=== PATIENT | female | born 1935 | race Hispanic/Latino ===

== ENCOUNTER 2017-03-24 07:29 | Emergency (ER) | payer SELFPAY ==
[2017-03-24 09:42] LABS: Basophils % (Auto) 0.5 % (0.0-1.8); Eosinophils % (Auto) 0.5 % (0.0-4.3); Mean Corpuscular HGB Conc 31 % (30-34); Mean Corpuscular Volume 76 fl (79-97); Platelet Count 197 K/mm3 (140-440); Red Blood Count 5.26 M/mm3 (3.65-5.03); Red Cell Distribution Width 15.2 % (13.2-15.2); White Blood Count 6.8 K/mm3 (4.5-11.0)
[2017-03-24 09:51] LABS: Anion Gap 15 mmol/L; Blood Urea Nitrogen 11 mg/dL (7-17); Calcium 9.2 mg/dL (8.4-10.2); Carbon Dioxide 28 mmol/L (22-30); Chloride 103.4 mmol/L (98-107); Glucose 98 mg/dL (65-100); Hematocrit 39.7 % (30.3-42.9); Hemoglobin 12.2 gm/dl (10.1-14.3); Mean Corpuscular Hemoglobin 23 pg (28-32); Potassium 3.7 mmol/L (3.6-5.0); Sodium 143 mmol/L (137-145)
[2017-03-24] MEDS ORDERED: HALDOL IM ONE (10:47)
[2017-03-24] MEDS ORDERED: ATIVAN IM ONE (10:47)
--- NOTE | 2017-03-24 10:48 | Emergency Department Report ---
ED General Adult HPI - General Chief complaint: Fall Stated complaint: FALL/AMS Time Seen by Provider: 03/24/17 10:37 Source: patient, EMS (ems notes not available at time of chart dictation), RN notes reviewed Mode of arrival: Stretcher Limitations: Other (patient demented, patient poor historian, history of Alzheimer) - History of Present Illness Initial comments: This is an 81-year-old female who was previously unknown to this provider. Patient apparently was found down on floor of her local nursing care facility, and is sent to the ER for evaluation. The patient has no complaints, and is currently walking around the emergency department in no distress. She will follow some commands but not all commands. Patient is unable to provide exacerbating or relieving factors. -: unknown Improves with: none Worsens with: none Associated Symptoms: confusion (chronic baseline confusion) - Related Data Allergies Allergy/AdvReac Type Severity Reaction Status Date / Time No Known Allergies Allergy Unverified 03/24/17 07:50 ED Review of Systems ROS: Stated complaint: FALL/AMS Other details as noted in HPI Comment: Unobtainable due to pts medical conditions ED Past Medical Hx - Past Medical History Hx Dementia: Yes Additional medical history: Alzheimer - Social History Smoking Status: Never Smoker Substance Use Type: None ED Physical Exam - General Limitations: Other (patient demented, poor historian) General appearance: alert, in no apparent distress - Head Head exam: Present: normocephalic, other (frontal ecchymosis noted) - Eye Eye exam: Present: other (left surgical pupil status post cataract surgery. Minimal pupillary response and the right pupil.). Absent: normal appearance (b/ l arcus senilis) - ENT ENT exam: Present: normal exam, normal orophraynx, mucous membranes moist, TM's normal bilaterally, normal external ear exam, other (there is no hemotympanum. There is no nasal septal hematoma.) - Neck Neck exam: Present: normal inspection, full ROM. Absent: tenderness, meningismus - Respiratory Respiratory exam: Present: normal lung sounds bilaterally. Absent: respiratory distress, wheezes, rales, rhonchi, stridor, chest wall tenderness - Cardiovascular Cardiovascular Exam: Present: regular rate, normal rhythm, normal heart sounds. Absent: bradycardia, tachycardia, irregular rhythm, systolic murmur, diastolic murmur, rubs, gallop - GI/Abdominal GI/Abdominal exam: Present: soft, normal bowel sounds. Absent: distended, tenderness, guarding, rebound, rigid, pulsatile mass - Extremities Exam Extremities exam: Present: normal inspection, normal capillary refill, other ( the pelvis is stable. There is no long bony tenderness. The compartments are soft. 2+ pulses noted in the bilateral upper and lower extremities.). Absent: calf tenderness - Back Exam Back exam: Present: normal inspection, full ROM. Absent: tenderness, CVA tenderness (R), CVA tenderness (L), muscle spasm, paraspinal tenderness, vertebral tenderness - Neurological Exam Neurological exam: Present: alert, normal gait, other (Extraocular movements intact. Tongue midline. No facial droop. Facial sensation intact to light touch in the V1, V2, V3 distribution bilaterally. 5 and 5 strength in 4 extremities.. Sensation is intact to light touch in 4 extremities.). Absent: motor sensory deficit - Psychiatric Psychiatric exam: Present: normal affect, normal mood - Skin Skin exam: Present: warm, dry, intact, normal color. Absent: rash ED Course Vital Signs 03/24/17 03/24/17 03/24/17 07:39 07:50 08:50 Temperature 97 F L Pulse Rate 78 73 Respiratory 16 16 Rate Blood Pressure 132/47 132/47 O2 Sat by Pulse 97 97 98 Oximetry 03/24/17 03/24/17 03/24/17 09:00 09:30 10:18 Temperature Pulse Rate Respiratory 16 Rate Blood Pressure 139/81 139/81 139/81 O2 Sat by Pulse 98 96 87 Oximetry 03/24/17 03/24/17 03/24/17 10:36 11:00 11:30 Temperature Pulse Rate Respiratory Rate Blood Pressure 139/81 145/96 145/96 O2 Sat by Pulse 99 98 Oximetry 03/24/17 12:00 Temperature Pulse Rate Respiratory Rate Blood Pressure 145/96 O2 Sat by Pulse 100 Oximetry - Reevaluation(s) Reevaluation #1: 03/24/17 13:02 Differential diagnosis: Intracranial injury, cervical spine injury, pneumonia, urinary tract infection, fall, contusion Assessment and plan: 81-year-old female status post fall. Uncertain what mechanisms involved. Patient initially walking around the ER, neurologic examination nonfocal, her presentation appears to be consistent with elderly patient with chronic dementia. Patient required Haldol and Ativan for her safety, she is currently awaiting CT scan of the brain and cervical spine. Laboratory studies unremarkable, x-ray of the chest, pelvis unremarkable. EKG pending. Reevaluation #2: 03/24/17 13:59 CT scan of the brain and cervical spine negative. Patient resting comfortably. No distress. Patient will be discharged at this time. Return precautions are reviewed. ED Medical Decision Making - Lab Data Result diagrams: 03/24/17 09:18 03/24/17 09:18 Vital Signs 03/24/17 03/24/17 03/24/17 07:39 07:50 08:50 Temperature 97 F L Pulse Rate 78 73 Respiratory 16 16 Rate Blood Pressure 132/47 132/47 O2 Sat by Pulse 97 97 98 Oximetry 03/24/17 03/24/17 03/24/17 09:00 09:30 10:18 Temperature Pulse Rate Respiratory 16 Rate Blood Pressure 139/81 139/81 139/81 O2 Sat by Pulse 98 96 87 Oximetry 03/24/17 03/24/17 03/24/17 10:36 11:00 11:30 Temperature Pulse Rate Respiratory Rate Blood Pressure 139/81 145/96 145/96 O2 Sat by Pulse 99 98 Oximetry 03/24/17 12:00 Temperature Pulse Rate Respiratory Rate Blood Pressure 145/96 O2 Sat by Pulse 100 Oximetry Lab Results 03/24/17 03/24/17 03/24/17 Range/Units 09:18 09:18 09:18 WBC 6.8 (4.5-11.0) K/mm3 RBC 5.26 H (3.65-5.03) M/mm3 Hgb 12.2 (10.1-14.3) gm/dl Hct 39.7 (30.3-42.9) % MCV 76 L (79-97) fl MCH 23 L (28-32) pg MCHC 31 (30-34) % RDW 15.2 (13.2-15.2) % Plt Count 197 (140-440) K/mm3 Lymph % (Auto) 26.6 (13.4-35.0) % [place] % (Auto) 13.9 H (0.0-7.3) % Eos % (Auto) 0.5 (0.0-4.3) % Baso % (Auto) 0.5 (0.0-1.8) % Lymph # 1.8 (1.2-5.4) K/mm3 [place] # 0.9 H (0.0-0.8) K/mm3 Eos # 0.0 (0.0-0.4) K/mm3 Baso # 0.0 (0.0-0.1) K/mm3 Seg Neutrophils % 58.5 (40.0-70.0) % Seg Neutrophils # 4.0 (1.8-7.7) K/mm3 Sodium 143 (137-145) mmol/L Carbon Dioxide 28 (22-30) mmol/L BUN 11 (7-17) mg/dL Creatinine 0.5 L (0.7-1.2) mg/dL Estimated GFR > 60 ml/min BUN/Creatinine Ratio 22.00 % Glucose 98 (65-100) mg/dL Calcium 9.2 (8.4-10.2) mg/dL Total Creatine Kinase 634 H (30-135) units/L Urine Color (Yellow) Urine Turbidity (Clear) Urine pH (5.0-7.0) Ur Specific [place] (1.003-1.030) Urine Protein (Negative) mg/dL Urine Glucose (UA) (Negative) mg/dL Urine Ketones (Negative) mg/dL Urine Blood (Negative) Urine Nitrite (Negative) Urine Bilirubin (Negative) Urine Urobilinogen (<2.0) mg/dL Ur Leukocyte Esterase (Negative) Urine WBC (Auto) (0.0-6.0) /HPF Urine RBC (Auto) (0.0-6.0) /HPF Urine Mucus /HPF 03/24/17 Range/Units 11:02 WBC (4.5-11.0) K/mm3 RBC (3.65-5.03) M/mm3 Hgb (10.1-14.3) gm/dl Hct (30.3-42.9) % MCV (79-97) fl MCH (28-32) pg MCHC (30-34) % RDW (13.2-15.2) % Plt Count (140-440) K/mm3 Lymph % (Auto) (13.4-35.0) % [place] % (Auto) (0.0-7.3) % Eos % (Auto) (0.0-4.3) % Baso % (Auto) (0.0-1.8) % Lymph # (1.2-5.4) K/mm3 [place] # (0.0-0.8) K/mm3 Eos # (0.0-0.4) K/mm3 Baso # (0.0-0.1) K/mm3 Seg Neutrophils % (40.0-70.0) % Seg Neutrophils # (1.8-7.7) K/mm3 Sodium (137-145) mmol/L Carbon Dioxide (22-30) mmol/L BUN (7-17) mg/dL Creatinine (0.7-1.2) mg/dL Estimated GFR ml/min BUN/Creatinine Ratio % Glucose (65-100) mg/dL Calcium (8.4-10.2) mg/dL Total Creatine Kinase (30-135) units/L Urine Color Yellow (Yellow) Urine Turbidity Clear (Clear) Urine pH 5.0 (5.0-7.0) Ur Specific [place] 1.019 (1.003-1.030) Urine Protein <15 mg/dl (Negative) mg/dL Urine Glucose (UA) Neg (Negative) mg/dL Urine Ketones Neg (Negative) mg/dL Urine Blood Neg (Negative) Urine Nitrite Neg (Negative) Urine Bilirubin Neg (Negative) Urine Urobilinogen < 2.0 (<2.0) mg/dL Ur Leukocyte Esterase Neg (Negative) Urine WBC (Auto) 1.0 (0.0-6.0) /HPF Urine RBC (Auto) 1.0 (0.0-6.0) /HPF Urine Mucus Few /HPF - EKG Data -: EKG Interpreted by Ri EKG shows normal: sinus rhythm - EKG Data 03/24/17 14:46 Sinus, 62 bpm, left axis deviation, QTC 459 ms, no arrhythmia, motion artifact, abnormal EKG, not morphologically consistent with STEMI - Radiology Data Radiology results: report reviewed, image reviewed X-ray of the chest, x-ray of the pelvis negative CT scan of the brain and cervical spine negative Critical care attestation.: If time is entered above; I have spent that time in minutes in the direct care of this critically ill patient, excluding procedure time. ED Disposition Clinical Impression: Fall Disposition: DC/TX-70 ANOTHER TYPE HLTHCARE Is pt being admited?: No Does the pt Need Aspirin: No Condition: Stable Instructions: Fall Prevention (ED) Additional Instructions: Continue current outpatient medications. Follow up with a primary care doctor within the next month. Return to the ER right away with fevers, chills, lethargy, irritability, projectile vomiting, change in mental status, inability to tolerate liquid feeds. Referrals: PRIMARY MD JANIA [Primary Care Provider] - 3-5 Days OLENA MILES MD [Staff Physician] - 3-5 Days
[2017-03-24] MEDS ORDERED: HALDOL ONE (10:51)
[2017-03-24] MEDS ORDERED: ATIVAN ONE (10:51)
[2017-03-24 11:04] VITALS: BP 145/96
[2017-03-24 11:17] LABS: Bilirubin,Urine NEG (Negative); Blood,Urine NEG (Negative); Ketones,Urine NEG (Negative); Leukocyte Esterase,Urine NEG (Negative); Mucus,Urine FEW /HPF; Nitrite,Urine NEG (Negative); Protein,Urine <15 mg/dL mg/dL (Negative); Urobilinogen,Urine < 2.0 mg/dL (<2.0)
--- NOTE | 2017-03-24 12:12 | XRay Report ---
AP PELVIS: History: Pain after fall. AP view of the pelvis shows normal pelvic contour and soft tissues. The hips are symmetric and within normal limits as are the sacroiliac joints. IMPRESSION: No acute injury identified.
--- NOTE | 2017-03-24 12:13 | XRay Report ---
Single view chest: History: Fall, PNA. Findings: Cardiomegaly. Trachea is midline. No consolidation, pneumothorax or pleural effusion. Impression: Cardiomegaly. No definite acute lung changes.
--- NOTE | 2017-03-24 13:49 | Cat Scan Report ---
CT SCAN OF THE CERVICAL SPINE: HISTORY: Neck injury after fall. TECHNIQUE: Contiguous 1.25 mm axial images of the cervical spine were obtained. Sagittal and coronal reformatted images. FINDINGS: Borderline bone mineralization. There is reversal of the normal cervical lordosis with moderate multilevel degenerative disc disease and facet arthropathy. No evidence for displaced fracture, subluxation or bone lesion. No high-grade central canal narrowing is appreciated. Multilevel neural foraminal narrowing is suspected. The paraspinal soft tissues are within normal limits. IMPRESSION: Cervical spondylosis. Reversal of the normal cervical lordosis. No acute injury is appreciated on CT.
--- NOTE | 2017-03-24 13:49 | Cat Scan Report ---
CT HEAD WITHOUT CONTRAST: HISTORY: Altered mental status, fall. TECHNIQUE: Sequential CT images without contrast. FINDINGS: Images obtained show bilateral prominence of the sulci and ventricles. There are no abnormal intra- or extra-axial blood or fluid collections. There are no focal masses or evidence of mass effect. The hoskins white matter differentiation appears within normal limits. Regions of periventricular decreased attenuation are consistent with microangiopathic ischemic disease. The posterior fossa structures including the fourth ventricle, cerebellum, and brainstem appear normal. IMPRESSION: Evidence of atrophy and microangiopathic ischemic disease. No acute intracranial process noted.
== END 2017-03-24 18:25 | disposition other institution (70) ==
LOC: ED 07:29
DX: R41.0 Disorientation, unspecified (principal); F03.90 Unspecified dementia, unspecified severity, without behavioral disturbance, psychotic disturbance, mood disturbance, and anxiety
CPT/HCPCS: 36415; 70450; 71010; 72125; 72170; 80048; 81001; 82550; 82962; 85025; 93005; 93010; 96372; 99285; J1630; J2060

== ENCOUNTER 2018-07-07 12:52 | Emergency (ER) | payer SELFPAY ==
[2018-07-07 14:15] LABS: Basophils % (Auto) 0.7 % (0.0-1.8); Eosinophils # (Auto) 0.2 K/mm3 (0.0-0.4); Eosinophils % (Auto) 3.2 % (0.0-4.3); Hematocrit 38.7 % (30.3-42.9); Hemoglobin 12.1 gm/dl (10.1-14.3); Lymphocytes # (Auto) 1.8 K/mm3 (1.2-5.4); Mean Corpuscular HGB Conc 31 % (30-34); Mean Corpuscular Volume 77 fl (79-97); Monocytes # (Auto) 0.5 K/mm3 (0.0-0.8); Monocytes % (Auto) 8.5 % (0.0-7.3); Platelet Count 122 K/mm3 (140-440); Red Blood Count 5.04 M/mm3 (3.65-5.03); Red Cell Distribution Width 14.7 % (13.2-15.2)
[2018-07-07 14:28] LABS: Partial Thromboplastin Time 21.1 Sec. (24.2-36.6)
--- NOTE | 2018-07-07 14:29 | Emergency Department Report ---
ED General Adult HPI - General Chief complaint: Altered Mental Status Stated complaint: AMS Source: EMS Mode of arrival: Stretcher Limitations: Altered Mental Status, Physical Limitation - History of Present Illness Initial comments: Atrial female who had a choking episode and vomited while eating lunch today. She is transported to this facility with a question of a change in her mental status. There is said that he did not get any direct report beyond the above. The patient is essentially nonverbal and is not providing any historical information. She will follow simple commands. - Related Data Allergies Allergy/AdvReac Type Severity Reaction Status Date / Time No Known Allergies Allergy Unverified 03/24/17 07:50 ED Review of Systems ROS: Stated complaint: AMS Other details as noted in HPI Comment: Unobtainable due to pts medical conditions ED Past Medical Hx - Past Medical History Previous Medical History?: Yes Hx Hypertension: Yes Hx Dementia: Yes Additional medical history: Alzheimer - Social History Smoking Status: Unknown if ever smoked Substance Use Type: None ED Physical Exam - General Limitations: Altered Mental Status, Physical Limitation General appearance: in no apparent distress, lethargic (somewhat) - Head Head exam: Present: atraumatic, normocephalic - Eye Eye exam: Present: normal appearance. Absent: scleral icterus - ENT ENT exam: Present: mucous membranes moist - Neck Neck exam: Present: normal inspection. Absent: tenderness, meningismus - Respiratory Respiratory exam: Present: normal lung sounds bilaterally. Absent: respiratory distress - Cardiovascular Cardiovascular Exam: Present: regular rate, normal rhythm. Absent: systolic murmur, diastolic murmur, rubs, gallop - GI/Abdominal GI/Abdominal exam: Present: soft, normal bowel sounds. Absent: distended, tenderness, guarding, rebound, rigid - Extremities Exam Extremities exam: Present: normal inspection - Back Exam Back exam: Present: normal inspection - Neurological Exam Neurological exam: Present: alert, altered, CN II-XII intact (as testable). Absent: motor sensory deficit (not apparent) - Psychiatric Psychiatric exam: Present: normal mood, flat affect - Skin Skin exam: Present: warm, dry, intact, normal color. Absent: rash ED Course Vital Signs 07/07/18 13:17 Temperature 97.2 F L Pulse Rate 96 H Respiratory 17 Rate Blood Pressure 128/80 O2 Sat by Pulse 95 Oximetry - Reevaluation(s) Reevaluation #1: Patient is poorly responsive and asking to eat. CT of the head and chest was okay. I do not think she would benefit from hospitalization at this time. She will be returned to the intermediate. 07/07/18 17:11 ED Medical Decision Making - Lab Data Result diagrams: 07/07/18 Unknown 07/07/18 Unknown Laboratory Results - last 24 hr 07/07/18 07/07/18 07/07/18 14:24 Unknown Unknown WBC 6.1 RBC 5.04 H Hgb 12.1 Hct 38.7 MCV 77 L MCH 24 L MCHC 31 RDW 14.7 Plt Count 122 L Lymph % (Auto) 29.0 [place] % (Auto) 8.5 H Eos % (Auto) 3.2 Baso % (Auto) 0.7 Lymph # 1.8 Crisp # 0.5 Eos # 0.2 Baso # 0.0 Seg Neutrophils % 58.6 Seg Neutrophils # 3.6 PT INR APTT Sodium 142 Potassium 4.0 Chloride 103.7 Carbon Dioxide 28 Anion Gap 14 BUN 10 Creatinine 0.7 Estimated GFR > 60 BUN/Creatinine Ratio 14 Glucose 114 H Calcium 9.3 Magnesium 1.90 Total Bilirubin 0.20 AST 18 ALT 14 Alkaline Phosphatase 67 Ammonia 60.0 NT-Pro-B Natriuret Pep 49.89 Total Protein 6.6 Albumin 3.7 L Albumin/Globulin Ratio 1.3 07/07/18 Unknown WBC RBC Hgb Hct MCV MCH MCHC RDW Plt Count Lymph % (Auto) [place] % (Auto) Eos % (Auto) Baso % (Auto) Lymph # Crisp # Eos # Baso # Seg Neutrophils % Seg Neutrophils # PT 14.2 INR 1.06 APTT 21.1 L Sodium Potassium Chloride Carbon Dioxide Anion Gap BUN Creatinine Estimated GFR BUN/Creatinine Ratio Glucose Calcium Magnesium Total Bilirubin AST ALT Alkaline Phosphatase Ammonia NT-Pro-B Natriuret Pep Total Protein Albumin Albumin/Globulin Ratio - EKG Data EKG shows normal: sinus rhythm, axis, intervals, QRS complexes, ST-T waves Rate: tachycardia - EKG Data Interpretation: nonspecific ST-T wave letty - Radiology Data Radiology results: report reviewed Chest x-ray and CT of the head no acute process. Critical care attestation.: If time is entered above; I have spent that time in minutes in the direct care of this critically ill patient, excluding procedure time. ED Disposition Clinical Impression: Awareness alteration, transient Choking Qualifiers: Encounter type: initial encounter Qualified Code(s): T17.308A - Unspecified foreign body in larynx causing other injury, initial encounter Disposition: TO HOME OR SELFCARE Is pt being admited?: No Does the pt Need Aspirin: No Condition: Stable Additional Instructions: Return to the emergency department if any further problem. Otherwise follow-up with primary care provider. Referrals: PRIMARY CARE, [Primary Care Provider] - 3-5 Days Time of Disposition: 17:53
[2018-07-07 14:35] LABS: Alanine Aminotransferase 14 units/L (7-56); Albumin 3.7 g/dL (3.9-5); BUN/Creatinine Ratio 14; Blood Urea Nitrogen 10 mg/dL (7-17); Calcium 9.3 mg/dL (8.4-10.2); Hemolysis Index 10
[2018-07-07 14:43] LABS: INR 1.06 (0.87-1.13)
--- NOTE | 2018-07-07 14:52 | XRay Report ---
AP CHEST: HISTORY: Cough AP view of the chest demonstrates a normal mediastinal and cardiac contour with clear lungs and normal bony and soft tissue structures. IMPRESSION: Unremarkable AP chest.
--- NOTE | 2018-07-07 15:30 | Cat Scan Report ---
CT HEAD WITHOUT CONTRAST: HISTORY: Altered mental status. TECHNIQUE: Sequential CT images without contrast. FINDINGS: Images obtained show bilateral prominence of the sulci and ventricles. There are no abnormal intra- or extra-axial blood or fluid collections. There are no focal masses or evidence of mass effect. The hoskins white matter differentiation appears within normal limits. Regions of periventricular decreased attenuation are consistent with microangiopathic ischemic disease. The posterior fossa structures including the fourth ventricle, cerebellum, and brainstem appear normal. IMPRESSION: Evidence of atrophy and microangiopathic ischemic disease. No acute intracranial process noted. No change since 03/24/17.
[2018-07-07 19:21] VITALS: BP 128/41
== END 2018-07-07 19:21 | disposition home or self-care (01) ==
LOC: ED 12:52
DX: T17.308A Unspecified foreign body in larynx causing other injury, initial encounter (principal); R40.4 Transient alteration of awareness; I10 Essential (primary) hypertension; X58.XXXA Exposure to other specified factors, initial encounter; Y93.89 Activity, other specified; Y92.89 Other specified places as the place of occurrence of the external cause; Y99.8 Other external cause status
CPT/HCPCS: 36415; 70450; 71045; 80053; 82140; 83735; 83880; 85025; 85610; 85730; 93005; 93010; 99284

== ENCOUNTER 2021-05-24 10:54 | Emergency (ER) | payer MEDICARE ==
--- NOTE | 2021-05-24 12:35 | Cat Scan Report ---
CT HEAD WITHOUT CONTRAST INDICATION / CLINICAL INFORMATION: fall chi, loc. TECHNIQUE: All CT scans at this location are performed using CT dose reduction for ALARA by means of automated e xposure control. COMPARISON: Head CT 03/24/2017 FINDINGS: HEMORRHAGE: No evidence of intracranial hemorrhage or extra-axial fluid collection. EXTRA-AXIAL SPACES: Cortical sulci and sylvian fissures are enlarged reflecting a degree of parenchym al volume loss which is within normal limits for the patient's age of 85 years. Basilar cisterns have an unremarkable appearance. VENTRICULAR SYSTEM: The third and lateral ventricles are enlarged reflecting presence of age related parenchymal volume loss. CEREBRAL PARENCHYMA: Periventricular and deep white matter lucency is observed. This is probably seco ndary to microvascular ischemic change. There is no indication of recent infarction. No areas of ence phalomalacia are identified. MIDLINE SHIFT OR HERNIATION: There is no mass effect. CEREBELLUM / BRAINSTEM: Brainstem has an unremarkable appearance. Age related cerebellar atrophy is n oted. MIDLINE STRUCTURES:Pituitary gland has an unremarkable appearance. No abnormalities are seen in the p ineal region. INTRACRANIAL VESSELS: Mildly calcified atherosclerotic plaque is present along the course of the cave rnous segments of both internal carotid arteries. ORBITS: Status post left cataract surgery. No addit ional abnormality. SOFT TISSUES of HEAD: No significant abnormality. CALVARIUM: Evaluation of bone windows reveals no abnormalities. PARANASAL SINUSES / MASTOID AIR CELLS: Paranasal sinuses are free from inflammatory mucosal disease. The frontal sinuses did not develop in this individual. Mastoid air cells are normally pneumatized. ADDITIONAL FINDINGS: None. IMPRESSION: 1. Age-appropriate involutional changes of parenchymal volume loss and mild microvascular ischemia. 2. No acute intracranial abnormality. No interval change. Signer Name: Navin White MD Signed: 05/24/2021 12:30 PM Workstation Name: [id number]
--- NOTE | 2021-05-24 13:42 | Emergency Department Report ---
ED Fall HPI - General Chief Complaint: Fall Stated Complaint: FALL Time Seen by Provider: 05/24/21 11:37 Source: patient Mode of arrival: Stretcher - History of Present Illness Initial Comments: Patient 85-year-old F Nigerien female with a past medical history of dementia who suffered a fall out of bed. Patient has an abrasion to the left scientology. Patient cannot remember the details of the fall. Patient's dementia is advanced and the patient is unable to give any meaningful history. She states she feels fine. Patient did not actually know that she was in the hospital during our interaction. States she has no pain nausea vomiting. - Related Data Allergies Allergy/AdvReac Type Severity Reaction Status Date / Time No Known Allergies Allergy Unverified 05/24/21 11:16 ED Review of Systems ROS: Stated complaint: FALL Other details as noted in HPI Comment: All other systems reviewed and negative ED Past Medical Hx - Past Medical History Hx Hypertension: Yes Hx Dementia: Yes Additional medical history: Alzheimer - Social History Smoking Status: Unknown if ever smoked Substance Use Type: None ED Physical Exam - General Limitations: Other General appearance: alert, in no apparent distress - Head Head exam: Present: normocephalic, other (Small abrasion to the left scientology) - Eye Eye exam: Present: normal appearance, PERRL, EOMI (ELaura Samuels is a) - ENT ENT exam: Present: mucous membranes moist - Neck Neck exam: Present: normal inspection, full ROM. Absent: tenderness - Respiratory Respiratory exam: Present: normal lung sounds bilaterally. Absent: respiratory distress, wheezes, rales, rhonchi - Cardiovascular Cardiovascular Exam: Present: regular rate, normal rhythm, normal heart sounds. Absent: systolic murmur, diastolic murmur, rubs, gallop - GI/Abdominal GI/Abdominal exam: Present: soft, normal bowel sounds. Absent: distended, tenderness, guarding, rebound - Extremities Exam Extremities exam: Present: normal inspection - Back Exam Back exam: Present: normal inspection - Neurological Exam Neurological exam: Present: alert, oriented X3 - Psychiatric Psychiatric exam: Present: normal affect, normal mood - Skin Skin exam: Present: warm, dry, intact, normal color. Absent: rash ED Course Vital Signs 05/24/21 05/24/21 11:12 12:21 Temperature 98.0 F 97.8 F Pulse Rate 85 58 L Respiratory 14 18 Rate Blood Pressure 138/76 151/61 [Left] O2 Sat by Pulse 98 99 Oximetry ED Medical Decision Making - Radiology Data [facility] [address] [place] [address] Cat Scan Report Signed Patient: DMITRI MART MR#: [id number] : 1935 Acct:[id number] Age/Sex: 85 / F ADM Date: 05/24/21 Loc: ED Attending Dr: Ordering Physician: SHIRA MCKEON MD Date of Service: 05/24/21 Procedure(s): CT head/brain wo con Accession Number(s): [id number] cc: SHIRA MCKEON MD CT HEAD WITHOUT CONTRAST INDICATION / CLINICAL INFORMATION: fall chi, loc. TECHNIQUE: All CT scans at this location are performed using CT dose reduction for ALARA by means of automated exposure control. COMPARISON: Head CT 03/24/2017 FINDINGS: HEMORRHAGE: No evidence of intracranial hemorrhage or extra-axial fluid jeanie ection. EXTRA-AXIAL SPACES: Cortical sulci and sylvian fissures are enlarged reflecting a degree of parenchymal volume loss which is within normal limits for the patient's age of 85 years. Basilar cisterns have an unremarkable appearance. VENTRICULAR SYSTEM: The third and lateral ventricles are enlarged reflecting presence of age related parenchymal volume loss. CEREBRAL PARENCHYMA: Periventricular and deep white matter lucency is observed. This is probably secondary to microvascular ischemic change. There is no indication of recent infarction. No areas of encephalomalacia are identified. MIDLINE SHIFT OR HERNIATION: There is no mass effect. CEREBELLUM / BRAINSTEM: Brainstem has an unremarkable appearance. Age related cerebellar atrophy is noted. MIDLINE STRUCTURES:Pituitary gland has an unremarkable appearance. No abnormalities are seen in the pineal region. INTRACRANIAL VESSELS: Mildly calcified atherosclerotic plaque is present along the course of the cavernous segments of both internal carotid arteries. ORBITS: Status post left cataract surgery. No additional abnormality. SOFT TISSUES of HEAD: No significant abnormality. CALVARIUM: Evaluation of bone windows reveals no abnormalities. PARANASAL SINUSES / MASTOID AIR CELLS: Paranasal sinuses are free from inflammatory mucosal disease. The frontal sinuses did not develop in this individual. Mastoid air cells are normally pneumatized. ADDITIONAL FINDINGS: None. IMPRESSION: 1. Age-appropriate involutional changes of parenchymal volume loss and mild microvascular ischemia. 2. No acute intracranial abnormality. No interval change. Signer Name: Navin White MD Signed: 05/24/2021 12:30 PM Workstation Name: [id number] - Medical Decision Making Because the patient is a poor historian, 85 and it is unknown whether the patient lost consciousness CT head was performed. CT head negative. Patient stable for discharge Critical care attestation.: If time is entered above; I have spent that time in minutes in the direct care of this critically ill patient, excluding procedure time. ED Disposition Clinical Impression: Closed head injury, Abrasion Disposition: 01 HOME / SELF CARE / HOMELESS Is pt being admited?: No Does the pt Need Aspirin: No Condition: Stable Instructions: Head Injury, Adult, Cour-cl-Vuhr Referrals: BUDDY MARY [Primary Care Provider] - 3-5 Days Time of Disposition: 13:41
[2021-05-24 16:27] VITALS: BP 110/62
== END 2021-05-24 16:25 | disposition home or self-care (01) ==
LOC: ED 10:54
DX: S00.81XA Abrasion of other part of head, initial encounter (principal); I10 Essential (primary) hypertension; W06.XXXA Fall from bed, initial encounter; Y93.89 Activity, other specified; Y92.89 Other specified places as the place of occurrence of the external cause; Y99.8 Other external cause status
CPT/HCPCS: 70450; 99284

== ENCOUNTER 2021-11-08 18:47 | Emergency (ER) | payer MEDICARE ==
[2021-11-08] MEDS ORDERED: SODIUM CHLORIDE 0.9% 1000 ML 1,000 ML IV ONE (21:04)
--- NOTE | 2021-11-08 21:09 | Emergency Department Report ---
ED Altered Mental Status HPI - General Chief Complaint: Altered Mental Status Stated Complaint: ALTERED MENTAL STATUS Time Seen by Provider: 11/08/21 20:44 Source: EMS, RN notes reviewed Mode of arrival: Stretcher Limitations: Altered Mental Status - History of Present Illness Initial Comments: 86 yo F brought in by EMS with AMS that was noticed today when the patient urinated on herself. When asked patient denies been confused. She also denies any dysuria or urinary frequency. No other modifying or associated factors reported. - Related Data Previous Rx's Medication Instructions Recorded Last Taken Type cephALEXin [Keflex] 500 mg PO Q12HR #14 cap 11/09/21 Unknown Rx Allergies Allergy/AdvReac Type Severity Reaction Status Date / Time No Known Allergies Allergy Verified 11/09/21 02:26 ED Review of Systems ROS: Stated complaint: ALTERED MENTAL STATUS Other details as noted in HPI Comment: All other systems reviewed and negative Neurological: confusion, other (AMS) ED Past Medical Hx - Past Medical History Previous Medical History?: Yes Hx Hypertension: Yes Hx Dementia: Yes Additional medical history: Alzheimer - Surgical History Past Surgical History?: No - Social History Smoking Status: Unknown if ever smoked Substance Use Type: None - Medications Home Medications: Home Medications Medication Instructions Recorded Confirmed Last Taken Type cephALEXin [Keflex] 500 mg PO Q12HR #14 cap 11/09/21 Unknown Rx ED Physical Exam - General Limitations: Altered Mental Status General appearance: alert, in no apparent distress - Head Head exam: Present: atraumatic, normal inspection - Eye Eye exam: Present: normal appearance Pupils: Present: normal accommodation - ENT ENT exam: Present: normal exam, normal orophraynx, mucous membranes dry - Neck Neck exam: Present: normal inspection, full ROM. Absent: tenderness - Respiratory Respiratory exam: Present: normal lung sounds bilaterally. Absent: respiratory distress, accessory muscle use - Cardiovascular Cardiovascular Exam: Present: regular rate, normal rhythm, normal heart sounds - GI/Abdominal GI/Abdominal exam: Present: soft, normal bowel sounds. Absent: distended, tenderness - Extremities Exam Extremities exam: Present: normal inspection, normal capillary refill - Back Exam Back exam: Present: tenderness - Neurological Exam Neurological exam: Present: alert - Psychiatric Psychiatric exam: Present: normal affect, normal mood - Skin Skin exam: Present: warm, normal color ED Course Vital Signs 11/08/21 11/09/21 11/09/21 20:20 01:00 03:00 Temperature 98.4 F 98.6 F Pulse Rate 78 78 Respiratory 16 18 Rate Blood Pressure 157/76 138/78 [Right] O2 Sat by Pulse 99 100 100 Oximetry 11/09/21 11/09/21 04:00 08:13 Temperature 98.2 F Pulse Rate 78 78 Respiratory 18 16 Rate Blood Pressure 138/76 134/69 [Right] O2 Sat by Pulse 100 97 Oximetry - Reevaluation(s) Reevaluation #1: 11/08/21 21:09 here with concern for AMS --differential diagnosis could include not limited to urinary tract infection, or other infectious process, electrolyte abnormality including hypo or hypernatremia, hypo or hyperkalemia--we will go ahead in the meantime while waiting for the above labs and order IV fluid NS x1 L bolus. Reevaluation #2: 11/08/21 23:57 Nursing unable to collect urine for UA because patient was struggling with them. At this patient they want to try and encourage patient to urinate on the bed vega-- Pt signed out to Dr Guajardo who will follow up on the UA to see if this patient needs antibiotics for likely UTi that can explain her confusion noticed by the NH. - Lab Data Result diagrams: 11/08/21 21:22 11/08/21 21: Lab Results 11/08/21 11/08/21 11/08/21 Range/Units 21:22 21:22 21:22 WBC 5.8 (4.5-11.0) K/mm3 RBC 5.09 H (3.65-5.03) M/mm3 Hgb 12.1 (10.1-14.3) gm/dl Hct 39.6 (30.3-42.9) % MCV 78 L (79-97) fl MCH 24 L (28-32) pg MCHC 31 (30-34) % RDW 14.9 (13.2-15.2) % Plt Count 169 (140-440) K/mm3 Lymph % (Auto) 20.1 (13.4-35.0) % [place] % (Auto) 9.1 H (0.0-7.3) % Eos % (Auto) 0.9 (0.0-4.3) % Baso % (Auto) 0.3 (0.0-1.8) % Lymph # (Auto) 1.2 (1.2-5.4) K/mm3 [place] # (Auto) 0.5 (0.0-0.8) K/mm3 Eos # (Auto) 0.1 (0.0-0.4) K/mm3 Baso # (Auto) 0.0 (0.0-0.1) K/mm3 Seg Neutrophils % 69.6 (40.0-70.0) % Seg Neutrophils # 4.1 (1.8-7.7) K/mm3 Sodium 141 (137-145) mmol/L Potassium 4.0 (3.6-5.0) mmol/L Chloride 105.9 (98-107) mmol/L Carbon Dioxide 23 (22-30) mmol/L Anion Gap 16 mmol/L BUN 15 (7-17) mg/dL Creatinine 1.0 (0.6-1.2) mg/dL Estimated GFR 53 ml/min BUN/Creatinine Ratio 15 % Glucose 116 H (65-100) mg/dL Calcium 10.1 (8.4-10.2) mg/dL Total Bilirubin 0.20 (0.1-1.2) mg/dL AST 17 (5-40) units/L ALT 11 (7-56) units/L Alkaline Phosphatase 83 (35-129) units/L Total Protein 6.3 (6.3-8.2) g/dL Albumin 4.0 (3.9-5) g/dL Albumin/Globulin Ratio 1.7 % TSH 2.440 (0.270-4.200) mlU/mL Urine Color (Yellow) Urine Turbidity (Clear) Urine pH (5.0-7.0) Ur Specific [place] (1.003-1.030) Urine Protein (Negative) mg/dL Urine Glucose (UA) (Negative) mg/dL Urine Ketones (Negative) mg/dL Urine Blood (Negative) Urine Nitrite (Negative) Urine Bilirubin (Negative) Urine Urobilinogen (<2.0) mg/dL Ur Leukocyte Esterase (Negative) Urine WBC (Auto) (0.0-6.0) /HPF Urine RBC (Auto) (0.0-6.0) /HPF U Epithel Cells (Auto) (0-13.0) /HPF 11/08/21 Range/Units Unknown WBC (4.5-11.0) K/mm3 RBC (3.65-5.03) M/mm3 Hgb (10.1-14.3) gm/dl Hct (30.3-42.9) % MCV (79-97) fl MCH (28-32) pg MCHC (30-34) % RDW (13.2-15.2) % Plt Count (140-440) K/mm3 Lymph % (Auto) (13.4-35.0) % [place] % (Auto) (0.0-7.3) % Eos % (Auto) (0.0-4.3) % Baso % (Auto) (0.0-1.8) % Lymph # (Auto) (1.2-5.4) K/mm3 [place] # (Auto) (0.0-0.8) K/mm3 Eos # (Auto) (0.0-0.4) K/mm3 Baso # (Auto) (0.0-0.1) K/mm3 Seg Neutrophils % (40.0-70.0) % Seg Neutrophils # (1.8-7.7) K/mm3 Sodium (137-145) mmol/L Potassium (3.6-5.0) mmol/L Chloride (98-107) mmol/L Carbon Dioxide (22-30) mmol/L Anion Gap mmol/L BUN (7-17) mg/dL Creatinine (0.6-1.2) mg/dL Estimated GFR ml/min BUN/Creatinine Ratio % Glucose (65-100) mg/dL Calcium (8.4-10.2) mg/dL Total Bilirubin (0.1-1.2) mg/dL AST (5-40) units/L ALT (7-56) units/L Alkaline Phosphatase (35-129) units/L Total Protein (6.3-8.2) g/dL Albumin (3.9-5) g/dL Albumin/Globulin Ratio % TSH (0.270-4.200) mlU/mL Urine Color Yellow (Yellow) Urine Turbidity Clear (Clear) Urine pH 5.0 (5.0-7.0) Ur Specific [place] 1.015 (1.003-1.030) Urine Protein <15 mg/dl (Negative) mg/dL Urine Glucose (UA) Neg (Negative) mg/dL Urine Ketones Neg (Negative) mg/dL Urine Blood Sm (Negative) Urine Nitrite Neg (Negative) Urine Bilirubin Neg (Negative) Urine Urobilinogen < 2.0 (<2.0) mg/dL Ur Leukocyte Esterase Mod (Negative) Urine WBC (Auto) 2.0 (0.0-6.0) /HPF Urine RBC (Auto) < 1.0 (0.0-6.0) /HPF U Epithel Cells (Auto) 3.0 (0-13.0) /HPF Critical care attestation.: If time is entered above; I have spent that time in minutes in the direct care of this critically ill patient, excluding procedure time. ED Disposition Clinical Impression: AMS (altered mental status) Qualifiers: Altered mental status type: unspecified Qualified Code(s): R41.82 - Altered mental status, unspecified UTI (urinary tract infection) Qualifiers: Urinary tract infection type: site unspecified Hematuria presence: with hematuria Qualified Code(s): N39.0 - Urinary tract infection, site not specified; R31.9 - Hematuria, unspecified Disposition: 01 HOME / SELF CARE / HOMELESS Is pt being admited?: No Does the pt Need Aspirin: No Condition: Stable Instructions: Urinary Tract Infection, Adult Prescriptions: cephALEXin [Keflex] 500 mg PO Q12HR #14 cap Referrals: JERRY SELF MD [Primary Care Provider] - 3-5 Days Time of Disposition: 23:59 (Pt signed out to Dr Guajardo)
[2021-11-08 21:41] LABS: Basophils % (Auto) 0.3 % (0.0-1.8); Eosinophils # (Auto) 0.1 K/mm3 (0.0-0.4); Eosinophils % (Auto) 0.9 % (0.0-4.3); Lymphocytes # (Auto) 1.2 K/mm3 (1.2-5.4); Lymphocytes % (Auto) 20.1 % (13.4-35.0); Mean Corpuscular HGB Conc 31 % (30-34); Mean Corpuscular Volume 78 fl (79-97); Monocytes # (Auto) 0.5 K/mm3 (0.0-0.8); Monocytes % (Auto) 9.1 % (0.0-7.3); Platelet Count 169 K/mm3 (140-440); Red Blood Count 5.09 M/mm3 (3.65-5.03); Red Cell Distribution Width 14.9 % (13.2-15.2)
[2021-11-08 21:43] LABS: Hematocrit 39.6 % (30.3-42.9); Hemoglobin 12.1 gm/dl (10.1-14.3)
[2021-11-08 22:09] LABS: Calcium 10.1 mg/dL (8.4-10.2)
[2021-11-09] MEDS ORDERED: SODIUM CHLORIDE 0.9% 1000 ML 1,000 ML ONE (01:08)
[2021-11-09 02:56] LABS: Bilirubin,Urine NEG (Negative); Blood,Urine SM (Negative); Color,Urine Yellow (Yellow); Protein,Urine <15 mg/dL mg/dL (Negative); RBC,Urine < 1.0 /HPF (0.0-6.0); Urobilinogen,Urine < 2.0 mg/dL (<2.0)
[2021-11-09 08:35] VITALS: BP 134/69
== END 2021-11-09 09:03 | disposition home or self-care (01) ==
LOC: ED 18:47
DX: R41.82 Altered mental status, unspecified (principal); N39.0 Urinary tract infection, site not specified; I10 Essential (primary) hypertension; F03.90 Unspecified dementia, unspecified severity, without behavioral disturbance, psychotic disturbance, mood disturbance, and anxiety
CPT/HCPCS: 36415; 80053; 81001; 84443; 85025; 96360; 96361; 99284; J7030

== ENCOUNTER 2021-11-12 09:18 | Emergency (ER) | payer MEDICARE ==
[2021-11-12] MEDS ORDERED: HALOPERIDOL LACTATE 5 MG/1 ML INJ IM ONE (10:42)
--- NOTE | 2021-11-12 11:07 | Emergency Department Report ---
HPI - General Chief Complaint: Extremity Injury, Lower Time Seen by Provider: 11/12/21 10:41 - HPI HPI: Room 5 The patient is an 86-year-old female present with a chief complaint left hip pain after fall. Patient is resident in a snf and reportedly has been unable to weight-bear and complains of left lower extremity pain after fall. Patient has a history of dementia and initially denies this. Patient initially denies having any complaints however during exam patient is unable to raise her left foot off of the stretcher and she complains of pain in the left hip preventing her from doing so. ED Past Medical Hx - Past Medical History Hx Hypertension: Yes Hx Dementia: Yes Additional medical history: Alzheimer - Family History Family history: no significant - Social History Smoking Status: Unknown if ever smoked Substance Use Type: None - Medications Home Medications: Home Medications Medication Instructions Recorded Confirmed Last Taken Type cephALEXin [Keflex] 500 mg PO Q12HR #14 cap 11/09/21 Unknown Rx ED Review of Systems ROS: Stated complaint: FALL Other details as noted in HPI Comment: Unobtainable due to pts medical conditions (Dementia) Physical Exam - Physical Exam Vital Signs: Vital Signs 11/12/21 09:21 Temperature 98.5 F Pulse Rate 80 Respiratory 16 Rate Blood Pressure 140/72 [Left] O2 Sat by Pulse 97 Oximetry Physical Exam: GENERAL: The patient is well-developed well-nourished female lying on stretcher not appearing to be in acute distress. [] HEENT: Normocephalic. Atraumatic. Extraocular motions are intact. Patient has moist mucous membranes. NECK: Supple. Trachea midline CHEST/LUNGS: Clear to auscultation. There is no respiratory distress noted. HEART/CARDIOVASCULAR: Regular. There is no tachycardia. There is no gallop rub or murmur. 2+ left DP ABDOMEN: Abdomen is soft, nontender. Patient has normal bowel sounds. There is no abdominal distention. SKIN: There is no rash. There is no edema. There is no diaphoresis. NEURO: The patient is awake and alert. Patient has dementia. The patient is intermittently cooperative. The patient has no focal neurologic deficits. The patient has normal speech. Patient is able to raise right foot off of stretcher and hold in the air without difficulty. Patient is unable to raise left foot from the stretcher. Patient is able to bend left knee and left hip but unable to raise left foot off of stretcher.. GCS 15 MUSCULOSKELETAL: There is left hip pain when the patient attempts to raise her left foot off of the stretcher ED Course Vital Signs 11/12/21 09:21 Temperature 98.5 F Pulse Rate 80 Respiratory 16 Rate Blood Pressure 140/72 [Left] O2 Sat by Pulse 97 Oximetry - Consultations Consultation #1: 11/12/21 14:18 [facility] transfer line called 11/12/21 14:[address] [facility] physician Dr. Stephanie Trotter-we will accept patient in transfer ED Medical Decision Making - Radiology Data Radiology results: report reviewed (Left hip x-ray, left tib-fib x-ray, left ankle x-ray), image reviewed (Left hip x-ray, left tib-fib x-ray, left ankle x- ray) interpreted by me: Left hip m-kis-sipinypg pubic rami fracture. There is no fracture appreciated of the femur Left tib-fib x-ray-no acute fracture Left ankle x-ray-no acute fracture [address] [address] XRay Report Signed Patient: DMITRI MART V MR#: [id number] 45 : 1935 Acct:[id number] Age/Sex: 86 / F ADM Date: 11/12/21 Loc: ED Attending Dr: Ordering Physician: FRITZ RUVLACABA MD Date of Service: 11/12/21 Procedure(s): XR ankle 3+V LT Accession Number(s): [id number] cc: FRITZ RUVALCABA MD Fluoro Time In Minutes: Left ankle, 3 views HISTORY: Unable to bear weight after fall. Abnormality seen on foreleg radiographs. COMPARISON: Same-day left foreleg radiographs FINDINGS: No acute fracture or malalignment. Finding on tibia-fibula radiograph is most consistent with artifact. 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 Ankle mortise is symmetric. No focal soft tissue abnormality. IMPRESSION: No acute fracture of the left ankle. Signer Name: Adriel Finney MD Signed: 11/12 1:40 PM Workstation Name: [employer] Transcribed By: NANCY Dictated By: ADRIEL FINNEY MD Electronically Authenticated By: ADRIEL FINNEY MD Signed Date/Time: 11/12/21 1340 DD/ 1337 TD/TT: [address] [address] XRay Report Signed Patient: DMITRI MART V MR#: [id number] 45 : 1935 Acct:[id number] Age/Sex: 86 / F ADM Date: 11/12/21 Loc: ED Attending Dr: Ordering Physician: FRITZ RUVALCABA MD Date of Service: 11/12/21 Procedure(s): XR tibia fibula 2V LT Accession Number(s): [id number] cc: FRITZ RUVALCABA MD Fluoro Time In Minutes: LEFT TIBIA-FIBULA 2 VIEW(S) INDICATION / CLINICAL INFORMATION: Unable to weight-bear after fall COMPARISON: None available. FINDINGS: BONES / JOINT(S): No definite fracture is seen. No subluxation is seen. There is degenerative change in the knee joint. There is subtle lucency along the medial malleolus on one view. This is likely artifact overlapping soft tissue. SOFT TISSUES: No significant abnormality. ADDITIONAL FINDINGS: None. IMPRESSION: 1. No definite fracture is seen. There is a subtle lucency projecting at the level of the medial malleolus on one view. I suspect that this is artifactual. If ankle injury is a clinical concern, dedicated ankle radiographs are recommended to better evaluate. Signer Name: Abundio Stevenson MD Signed: 11/12/2021 11:50 AM Workstation Name: [id number] Transcribed By: SS Dictated By: Abundio Stevenson MD Electronically Authenticated By: Abundio Stevenson MD Signed Date/Time: 11/12/21 1150 DD/ 1148 TD/TT: [address] [address] XRay Report Signed Patient: DMITRI MART V MR#: [id number] [birth year] : 1935 Acct:[id number] Age/Sex: 86 / F ADM Date: 11/12/21 Loc: ED Attending Dr: Ordering Physician: FRITZ RUVALCABA MD Date of Service: 11/12/21 Procedure(s): XR hip 2-3V LT Accession Number(s): [id number] cc: FRITZ RUVALCABA MD Fluoro Time In Minutes: LEFT HIP 2 VIEW INDICATION / CLINICAL INFORMATION: Pain after fall. COMPARISON: None available. FINDINGS: BONES / JOINT(S): There is a significantly displaced fracture of the inferior pubic ramus as well as in the inferior aspect of the acetabulum. Mild DJD of both hip joints. SOFT TISSUES: Calcified uterine fibroids are seen. ADDITIONAL FINDINGS: None. Signer Name: Sonido Maloney MD Signed: 11/12/2021 11:42 AM Workstation Name: [id number] Transcribed By: FLOR Dictated By: Sonido Maloney MD Electronically Authenticated By: Sonido Maloney MD Signed Date/Time: 11/12/21 1142 DD/ 1141 TD/TT: - Differential Diagnosis Left hip fracture, pelvic rami fracture, hip contusion Critical care attestation.: If time is entered above; I have spent that time in minutes in the direct care of this critically ill patient, excluding procedure time. ED Disposition Clinical Impression: Fracture of left inferior pubic ramus, Left acetabular fracture Disposition: 51 HOSPICE/MEDICAL FACILITY Is pt being admited?: No Does the pt Need Aspirin: No Condition: Stable Time of Disposition: 14:29 (Awaiting transport to [facility])
--- NOTE | 2021-11-12 11:46 | XRay Report ---
LEFT HIP 2 VIEW INDICATION / CLINICAL INFORMATION: Pain after fall. COMPARISON: None available. FINDINGS: BONES / JOINT(S): There is a significantly displaced fracture of the inferior pubic ramus as well as in the inferior aspect of the acetabulum. Mild DJD of both hip joints. SOFT TISSUES: Calcified uterine fibroids are seen. ADDITIONAL FINDINGS: None. Signer Name: Sonido Maloney MD Signed: 11/12/2021 11:42 AM Workstation Name: [id number]
--- NOTE | 2021-11-12 11:54 | XRay Report ---
LEFT TIBIA-FIBULA 2 VIEW(S) INDICATION / CLINICAL INFORMATION: Unable to weight-bear after fall COMPARISON: None available. FINDINGS: BONES / JOINT(S): No definite fracture is seen. No subluxation is seen. There is degenerative change in the knee joint. There is subtle lucency along the medial malleolus on one view. This is likely art ifact overlapping soft tissue. SOFT TISSUES: No significant abnormality. ADDITIONAL FINDINGS: None. IMPRESSION: 1. No definite fracture is seen. There is a subtle lucency projecting at the level of the medial mall eolus on one view. I suspect that this is artifactual. If ankle injury is a clinical concern, dedicat ed ankle radiographs are recommended to better evaluate. Signer Name: Abundio Stevenson MD Signed: 11/12/2021 11:50 AM Workstation Name: [id number]
--- NOTE | 2021-11-12 13:45 | XRay Report ---
Left ankle, 3 views HISTORY: Unable to bear weight after fall. Abnormality seen on foreleg radiographs. COMPARISON: Same-day left foreleg radiographs FINDINGS: No acute fracture or malalignment. Finding on tibia-fibula radiograph is most consistent with artifac t. 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 Ankle mortise is symmetric. No focal soft tissue abnormality. IMPRESSION: No acute fracture of the left ankle. Signer Name: Kwadwo Finney MD Signed: 11/12/2021 1:40 PM Workstation Name: [id number]
[2021-11-12 20:52] VITALS: BP 132/72
== END 2021-11-12 20:52 | disposition hospice, inpatient (51) ==
LOC: ED 09:18
DX: S32.402A Unspecified fracture of left acetabulum, initial encounter for closed fracture (principal); S32.502A Unspecified fracture of left pubis, initial encounter for closed fracture; I10 Essential (primary) hypertension; G30.9 Alzheimer's disease, unspecified; F02.80 Dementia in other diseases classified elsewhere, unspecified severity, without behavioral disturbance, psychotic disturbance, mood disturbance, and anxiety; W19.XXXA Unspecified fall, initial encounter; Y93.89 Activity, other specified; Y92.89 Other specified places as the place of occurrence of the external cause; Y99.8 Other external cause status
CPT/HCPCS: 73502; 73590; 73610; 96372; 99285; J1630; 99284